=== PATIENT | male | born 1955 | race Caucasian/White ===

== ENCOUNTER 2022-01-24 06:26 | Day surgery (SDC) | payer MEDICARE, SELFPAY ==
--- NOTE | 2022-01-23 09:33 | P.CONAN_ITS ---
Documented by User: Anabel Segura NP 01/23/22 09:37 HPI - Anesthesia Eval Consult details Narrative: 66yo M for Colonoscopy [facility] [place] Past Medical History Medical History (Updated 01/23/22 @ 09:35 by Anabel Segura NP) Melanoma Ulcerative colitis Surgical History Surgical History (Updated 01/23/22 @ 09:35 by Anabel Segura NP) H/O thumb surgery History of tonsillectomy Social History Social History Patient Tobacco Use Status: Never used Tobacco Use of substances other than those prescribed or required for medical reasons: No Advance Directives: No Advance Directives Information Provided: Yes Meds Allergies Allergy/AdvReac Type Severity Reaction Status Date / Time No Known Allergies Allergy Unverified 01/21/22 18:15 Home Medications Medication Instructions Recorded Confirmed Last Taken Type mesalamine 800 mg tablet,delayed tab PO 01/23/22 Unknown History release multivitamin 01/23/22 Unknown History Exam Exam Date and Time: January 23, [id number] Assessment and Plan Assessment Anesthesia Assessment: Chart Reviewed Documented by User: Neda Roes MD 01/24/22 07:21 [facility] [place] Past Medical History Medical History (Updated 01/23/22 @ 09:35 by Anabel Segura NP) Melanoma Ulcerative colitis Family History Family history of problems with anesthesia: No Surgical History Surgical History (Updated 01/23/22 @ 09:35 by Anabel Segura NP) H/O thumb surgery History of tonsillectomy History of Problems with Anesthesia: No Social History Social History Patient Tobacco Use Status: Never used Tobacco Use of substances other than those prescribed or required for medical reasons: No Advance Directives: No Advance Directives Information Provided: Yes Meds Allergies Allergy/AdvReac Type Severity Reaction Status Date / Time No Known Allergies Allergy Unverified 01/21/22 18:15 Home Medications Medication Instructions Recorded Confirmed Last Taken Type mesalamine 800 mg tablet,delayed tab PO 01/23/22 Unknown History release multivitamin 01/23/22 Unknown History Exam Airway Mallampati Class: I TM Dist: >3cm Neck ROM: Full Heart: rr Lungs: cta Assessment and Plan Assessment Anesthesia Assessment: Anesthesia Plan Discussed Final Anesthetic Review Family History of Problems with Anesthesia: No History of Problems with Anesthesia: No NPO: Yes ASA Class: II Final Preanesthetic Review: No Changes in Pt Med Stat Anesthetic Plan Anesthetic Plan: MAC: Disposition: Standard PACU
[2022-01-24 07:08] VITALS: BP 141/88; PULSE 71; RESP 16; TEMP 36.4; O2SAT 99; BMI 23.3
[2022-01-24] MEDS: Lactated Ringers 1,000 ML 100 ML IVCONT (07:16)
[2022-01-24 08:22] VITALS: BP 124/90; PULSE 70; RESP 12; TEMP 36.3; O2SAT 97
--- NOTE | 2022-01-24 08:26 | P.BOP_ITS ---
Brief Operative Note Date of Service: 01/24/22 Pre-op diagnosis: Ulcerative colitis Post-op diagnosis: other (Same, R/O Dysplasia) Procedure: Colonoscopy to the cecum and TI with biopspies Surgeon: Elbert Rea Anesthesia: MAC Was an [employer] used for this Procedure?: No Estimated blood loss (mL): 2.0 Pathology: other (A. Ascending colon B. Transverse colon C. Descending colon D. Sigmoid colon E. Rectum) Condition: stable Disposition: PACU
[2022-01-24 08:40] VITALS: BP 133/89; PULSE 62; RESP 18; TEMP 36.3; O2SAT 98
--- NOTE | 2022-01-24 08:50 | OP_ITS ---
SURGEON: Elbert Rea MD INDICATIONS: The patient presents for evaluation of underlying long-standing ulcerative pancolitis and colorectal cancer screening. Full consent was obtained from him for this, including risks of bleeding and perforation. PREOPERATIVE DIAGNOSIS: POSTOPERATIVE DIAGNOSIS: PROCEDURE PERFORMED: Colonoscopy to the cecum and terminal ileum with multiple biopsies. ESTIMATED BLOOD LOSS: COMPLICATIONS: ANESTHESIA: Medication used: Monitored anesthesia care. ASSISTANTS: SPECIMENS: PREOPERATIVE DIAGNOSES: Ulcerative pancolitis and colorectal cancer screening. POSTOPERATIVE DIAGNOSES: Ulcerative pancolitis and colorectal cancer screening, rule out dysplasia, small internal hemorrhoids. DESCRIPTION OF PROCEDURE: The patient was placed in the left lateral decubitus position. The digital rectal exam revealed no abnormalities. The Olympus video pediatric colonoscope was entered into the rectum and advanced easily to the cecum. Once in the cecum, I did identify normal-appearing cecal pouch. Other than what appeared to be some mild chronic changes of colitis, there was no evidence of any mass. The terminal ileum was cannulated and appeared normal. The scope was withdrawn back in the colon. The entire cecum was well visualized and appeared normal other than the mild changes of colitis. The scope was then slowly withdrawn assessing all mucosal surfaces carefully. Preparation was excellent throughout the colon. Throughout the colon, there was some patchy chronic changes of colitis, but nothing particularly active. There were no ulcerations, polyps, angiodysplasias, nor any suspicious lesions. Multiple biopsies were obtained in the ascending colon, transverse colon, descending colon, sigmoid colon, and rectum. There were occasional diverticula in the sigmoid colon. In the rectum, the scope was retroflexed visualizing some small internal hemorrhoids as well as some chronic mucosal changes of the ulcerative colitis. The scope was straightened and withdrawn from the patient. He tolerated the procedure well and was returned to the recovery area in stable condition. IMPRESSION: 1. Chronic ulcerative pancolitis. 2. Occasional sigmoid diverticulosis. 3. Small internal hemorrhoids. PLAN: The results of biopsies will be checked. If there is no dysplasia, I would recommend a repeat colonoscopy in 3 years. At this point, he has remained asymptomatic on the regimen of mesalamine 1600 mg t.i.d., although he reports that he takes 2400 mg b.i.d. for better compliance. As long as he remains asymptomatic we would simply observe things. I would recommend a repeat colonoscopy in 3 years for further surveillance. MD TATE Garber/JOANA / [id number] NADER
== END 2022-01-24 09:45 | disposition home or self-care (01) ==
PROVIDERS: PCP Nurse Practitioner; Visit Provider Internal Medicine
PROC: 0DJD8ZZ Inspection of Lower Intestinal Tract, Via Natural or Artificial Opening Endoscopic (ICD-10-PCS; CPT 45378; principal; 2022-01-24 07:30)
DX: Z12.11 Encounter for screening for malignant neoplasm of colon (principal); K51.00 Ulcerative (chronic) pancolitis without complications; K57.30 Diverticulosis of large intestine without perforation or abscess without bleeding; K64.8 Other hemorrhoids
CPT/HCPCS: 45380; 88305